=== PATIENT | female | born 1975 | race Caucasian/White ===

== ENCOUNTER 2017-12-01 16:33 | Emergency (ER) | payer MEDICAID ==
[~2017-12-01] VITALS: Ht 154.9 cm; Wt 77.6 kg
[2017-12-01 16:38] VITALS: Ht 154.9 cm; Wt 77.6 kg
[2017-12-01 17:06] VITALS: BP 140/93
== END 2017-12-01 17:06 | disposition home or self-care (01) ==
LOC: ED 16:33
DX: H66.92 Otitis media, unspecified, left ear (principal); J02.9 Acute pharyngitis, unspecified

== ENCOUNTER 2019-03-07 13:19 | Emergency (ER) | payer MEDICAID ==
[~2019-03-07] VITALS: Ht 154.9 cm; Wt 80.7 kg
[2019-03-07 13:38] VITALS: Ht 154.9 cm; Wt 80.7 kg
[2019-03-07 18:08] LABS: UA SPECIFIC GRAVITY 1.015 (1.005-1.035); microscopic required? YES; urine erythrocyte 3+ (NEGATIVE)
[2019-03-07 18:12] VITALS: BP 129/71
== END 2019-03-07 18:12 | disposition home or self-care (01) ==
LOC: ED 13:19
PROVIDERS: Emergency Medicine
DX: N39.0 Urinary tract infection, site not specified (principal); M79.7 Fibromyalgia